=== PATIENT | male | born 1935 | race Caucasian/White ===

== ENCOUNTER 2017-08-30 12:18 | Day surgery (SDC) | payer OTHER ==
[~2017-08-30] VITALS: Ht 177.8 cm; Wt 88.0 kg
[~2017-08-30 12:18] MED LIST: ASPIRIN325 MG PO; ASPIRIN81 M2 PO; ELIQUIS5 MG PO; HYDROCHLOROTHIA25 MG PO; HYDROCODON-ACE1 EAC7 PO; KEFLEX500 MG PO; LIPITOR80 MG PO; LOSARTAN POTAS100 MG PO; METOPROLOL TART50 MG PO; TYLENOL WITH C1 EACH PO; VITAMIN B125000 MCG PO
== END 2017-08-30 15:45 | disposition home or self-care (01) ==
LOC: CATH 12:18
DX: Z45.010 Encounter for checking and testing of cardiac pacemaker pulse generator [battery] (principal); I10 Essential (primary) hypertension; E78.5 Hyperlipidemia, unspecified; K21.9 Gastro-esophageal reflux disease without esophagitis; I25.10 Atherosclerotic heart disease of native coronary artery without angina pectoris; Z95.1 Presence of aortocoronary bypass graft; Z95.0 Presence of cardiac pacemaker; I48.0 Paroxysmal atrial fibrillation; Z79.01 Long term (current) use of anticoagulants; Z79.82 Long term (current) use of aspirin
CPT/HCPCS: C1785; J0690; J1200; J2250; J3010; S0020

== ENCOUNTER 2017-10-24 22:44 | Inpatient (IN) | payer OTHER ==
[~2017-10-24] VITALS: Ht 177.8 cm; Wt 94.6 kg
[2017-10-25 10:09] VITALS: BP 147/77
[2017-10-25 15:51] VITALS: BP 189/92
[2017-10-25 20:30] VITALS: BP 187/96
[2017-10-25 23:37] VITALS: BP 139/80
[2017-10-26 04:43] VITALS: BP 181/88
[2017-10-26 06:27] LABS: HEMATOCRIT 36.6 % (38.0-50.0); HEMOGLOBIN 11.8 G/DL (12.5-16.6); MCV 98.9 FL (86-99)
[2017-10-26 06:40] LABS: CHLORIDE 102 MEQ/L (99-109); CREATININE 1.2 MG/DL (0.6-1.3); GFR ESTIMATE (CALCULATED) > 59 mL/min/ (58.99-99999); GLUCOSE 148 mg/dL (70-99); POTASSIUM 4.3 MEQ/L (3.7-5.4); SODIUM 135 MEQ/L (136-147); UREA NITROGEN (BUN) 17 mg/dL (9-23)
[2017-10-26 08:24] VITALS: BP 162/78
[2017-10-26 15:37] VITALS: BP 169/83
[2017-10-27 00:12] VITALS: BP 143/98
[2017-10-27 05:51] LABS: HEMATOCRIT 35.1 % (38.0-50.0); HEMOGLOBIN 11.5 G/DL (12.5-16.6); MCV 96.7 FL (86-99)
[2017-10-27 07:41] VITALS: BP 182/75
[2017-10-27] MEDS ORDERED: OXYCODONE HCL5 MG PO (08:46)
[2017-10-27] MEDS ORDERED: CELECOXIB200 MG PO (08:46)
[2017-10-27 13:45] VITALS: BP 140/78
== END 2017-10-27 16:04 | DRG 470 ==
LOC: ENRESERV 22:44 → 2SOUTH 10-25 09:26 → 3EAST 10-25 15:07 → 2SOUTH 10-25 15:50 → 3EAST 10-27 16:04
PROVIDERS: Orthopaedic Surgery
PROC: 0SRD0J9 Replacement of Left Knee Joint with Synthetic Substitute, Cemented, Open Approach (ICD-10-PCS; principal; 2017-10-25)
DX: M17.12 Unilateral primary osteoarthritis, left knee (principal); I10 Essential (primary) hypertension; Z95.0 Presence of cardiac pacemaker
CPT/HCPCS: 80048; 85014; 85018; C1713; J0131; J0690; J1100; J1885; J2405; J2795; J3010; J7050